=== PATIENT | female | born 2000 | race African-American/Black ===

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

== ENCOUNTER 2020-08-13 18:14 | Emergency (ER) | payer BC, SELFPAY ==
[2020-08-13 18:22] VITALS: BP 148/95; PULSE 111; RESP 16; TEMP 37.4; O2SAT 99
--- NOTE | 2020-08-13 18:28 | ED.GENADULT ---
HPI - General Adult General Chief complaint: Abdominal Pain Stated complaint: abd pain Time Seen by Provider: 08/13/20 18:29 Source: patient and RN notes reviewed Mode of arrival: ambulatory Limitations: no limitations History of Present Illness HPI narrative: 20-year-old -[place] female presents with complaints of diffuse abdomen pain, nausea, and vomiting while eating at [employer] 1 day ago. No treatment. Armando says she became nauseated while eating and had 1 emesis (without blood) episode during her meal at [employer], no further emesis. No fever or chills. No flank pain. Exacerbating factors consist of eating and drinking. Attempted to eat fries today at 15:00 in which increased her nausea. Denies dysuria, hematuria, and vaginal bleeding. No blood in stool, diarrhea, or constipation. Last BM this morning, normal. No cough or dyspnea. Denies chest pain, back pain, headache, and dizziness. Urine output within normal limits. The patient reports she have not been diagnosed with COVID-19. The patient reports she is not waiting for the results of a COVID-19 lab test. The patient reports she do not have fever, chills, weakness, or fatigue. The patient reports she do not have a new or worsening cough or shortness of breath. Denies chest pain. The patient reports she do not have any rhinorrhea, congestion, sore throat, or loss of taste. Tolerating po intake fairly. Denies recent traveling. Denies concerns for COVID-19 or exposures been home with limited outdoor exposure except for essential household needs, school, and return home. At this time, patient is not suspected of having COVID-19. Some parts of this dictation were generated by voice recognition software and may contain typographical and/or grammatical inaccuracies. Related Data Home Medications Medication Instructions Recorded Confirmed albuterol sulfate 2.5 mg INHALATION DIRECTED PRN 12/17/19 08/13/20 albuterol sulfate [ProAir HFA] 1 puff INHALATION DIRECTED PRN 12/17/19 08/13/20 amlodipine 10 mg PO DAILY 12/17/19 08/13/20 hydrochlorothiazide 25 mg PO DAILY 12/17/19 08/13/20 ferrous sulfate 325 mg PO DAILY 08/13/20 08/13/20 medroxyprogesterone [Depo-Provera] 150 mg IM [id number] 08/13/20 08/13/20 Allergies Allergy/AdvReac Type Severity Reaction Status Date / Time No Known Allergies Allergy Verified 08/13/20 18:27 Review of Systems Review of Systems: Narrative: CONSTITUTIONAL: Denies fever, chills, sweats. EYES: Denies visual changes, redness, discharge. ENT: Denies rhinorrhea, congestion, sore throat, otalgia. CARDIOVASCULAR: Denies chest pain, palpitations, edema. RESPIRATORY: Denies dyspnea, wheezing, cough. GASTROINTESTINAL: Denies diarrhea. Complains of diffused abdominal pain, vomiting nausea, and emesis, decrease appetite. GENITOURINARY: Denies dysuria, hematuria, abnormal discharge. SKIN: Denies rash or itching. MUSCULOSKELETAL: Denies acute back pain, joint pain, or myalgia. NEUROLOGIC: Denies numbness or focal weakness. PSYCHIATRIC: Denies anxiety or depression. All systems reviewed & are unremarkable except as noted in HPI and below. [facility], [facility] Past Medical History Medical History (Updated 08/14/20 @ 00:00 by Warren Stern) Asthma Hypertension Ovarian mass Surgical History Surgical History (Updated 08/14/20 @ 08:54 by SUSHANT Jalloh) History of right salpingo-oophorectomy 12/19/19 Family History Family History (Updated 08/13/20 @ 18:44 by SUSHANT Jalloh) Grandparent Breast cancer Mother Diabetes mellitus Mother Hypertension Hypothyroidism Father , R/T Asthma Asthma Social History Social History Smoking status: Never smoker Tobacco type: cigarettes Alcohol intake: never Substance use: never Gender identity (if verbalized by the patient): Female Spiritual care concerns: No Agree to blood products: Yes Commen
[2020-08-13 18:47] VITALS: BP 150/90; PULSE 112; RESP 20; O2SAT 100
== END 2020-08-13 18:47 | disposition home or self-care (01) ==
PROVIDERS: Emergency Provider Nurse Practitioner Family
DX: K52.9 Noninfective gastroenteritis and colitis, unspecified (principal); J45.909 Unspecified asthma, uncomplicated; I10 Essential (primary) hypertension
CPT/HCPCS: 81003; 81025; 99213; G0463

== ENCOUNTER 2021-04-06 19:17 | Emergency (ER) | payer BC, SELFPAY ==
[2021-04-06 19:27] VITALS: BP 153/117; PULSE 85; RESP 18; TEMP 36.3; O2SAT 99
[2021-04-06 19:35] VITALS: BP 157/94; PULSE 83; RESP 18; O2SAT 100
--- NOTE | 2021-04-06 19:44 | ED.HA ---
HPI - Headache General Chief Complaint: Headache Stated Complaint: HTN, headache and hot Time Seen by Provider: 04/06/21 19:36 Source: patient, RN notes reviewed and old records reviewed History of Present Illness HPI Narrative: 20-year-old female presents to emergency department for headache that started around 5 PM today. Patient states she was at work, and noticed the pain all throughout her head. She has had a similar headache a few months ago. She has not take anything for the pain. Light makes the headache worse. Does report some nausea, no vomiting. No chest pain or breath. Patient states her last period was in May. She states her last Depo shot was at the beginning of the year. Related Data Home Medications Medication Instructions Recorded Confirmed albuterol sulfate 2.5 mg INHALATION DIRECTED PRN 12/17/19 08/13/20 albuterol sulfate [ProAir HFA] 1 puff INHALATION DIRECTED PRN 12/17/19 08/13/20 amlodipine 10 mg PO DAILY 12/17/19 08/13/20 hydrochlorothiazide 25 mg PO DAILY 12/17/19 08/13/20 ferrous sulfate 325 mg PO DAILY 08/13/20 08/13/20 medroxyprogesterone [Depo-Provera] 150 mg IM [id number] 08/13/20 08/13/20 Allergies Allergy/AdvReac Type Severity Reaction Status Date / Time No Known Allergies Allergy Verified 08/13/20 18:27 Review of Systems Review of Systems: Narrative: CONSTITUTIONAL: Denies fever, chills, or sweats. EYES: Denies visual changes, redness, or discharge. ENT: Denies rhinorrhea, congestion, sore throat, or otalgia. CARDIOVASCULAR: Denies chest pain, palpitations, or edema. RESPIRATORY: Denies cough or dyspnea. GASTROINTESTINAL: Denies abdominal pain, vomiting, or diarrhea. Reports nausea GENITOURINARY: Denies dysuria or hematuria. SKIN: Denies rash or itching. MUSCULOSKELETAL: Denies back pain, joint pain, or myalgia. NEUROLOGIC: Denies numbness, dizziness, or weakness. Reports headache PSYCHIATRIC: Denies anxiety or depression. All systems reviewed & are unremarkable except as noted in HPI and below (ROS) [facility] Past Medical History Medical History Asthma Hypertension Ovarian mass Surgical History Surgical History History of right salpingo-oophorectomy 12/19/19 Family History Family History Grandparent Breast cancer Mother Diabetes mellitus Mother Hypertension Hypothyroidism Father , R/T Asthma Asthma Social History Social History Smoking status: Never smoker Tobacco type: cigarettes Alcohol intake: never Substance use: never Gender identity (if verbalized by the patient): Female Spiritual care concerns: No Agree to blood products: Yes Exam Narrative: Exam Narrative: GENERAL: Well-appearing, well-nourished, and in no acute distress. HEAD: Normocephalic, atraumatic. EYES: PERRLA and EOMI. ENT: Nares clear, no rhinorrhea or epistaxis. Mucous membranes moist. NECK: Supple. CHEST: Clear to auscultation. No respiratory distress. HEART: Regular rate and rhythm. No murmur heard. Normal peripheral pulses. ABDOMEN: Soft, nontender, nondistended, normal active bowel sounds. EXTREMITIES: Normal range of motion. No edema. SKIN: Warm, dry, no rash. NEURO: No focal deficits. Alert and oriented x3. PSYCH: Normal mood and affect. Course Course Emergency Course: 2044 -reevaluated patient, pain improved. Counseled patient to follow-up with her medical provider within 1 week. Can take Tylenol or Motrin/ibuprofen as needed for pain. Return to emergency department at any time if symptoms persist, worsen, or other concerns. Vital Signs Vital signs: Vital Signs Temperature 36.3 C L 04/06/21 19:27 Pulse Rate 85 04/06/21 19:27 Respiratory Rate 18 04/06/21 19:27 Blood Pressure 153/117 H 04/06/21 19:27 Pulse Oximetry 9
[2021-04-06] MEDS: diphenhydrAMINE HCl INJ 50 MG/ML VIAL 25 MG IV PUSH (19:57)
[2021-04-06] MEDS: KETOROLAC 30 MG/ML VIAL (*BKC) IV PUSH (19:58)
[2021-04-06] MEDS: PROCHLORPERAZINE EDISYLATE 10 MG/2 ML VIAL IV PUSH (19:58)
[2021-04-06 20:06] VITALS: BP 150/86; PULSE 80; RESP 18; O2SAT 100
[2021-04-06 20:48] VITALS: BP 143/100; PULSE 70; RESP 16; O2SAT 100
== END 2021-04-06 20:59 | disposition home or self-care (01) ==
PROVIDERS: Emergency Provider Emergency Medicine
DX: G44.89 Other headache syndrome (principal); J45.909 Unspecified asthma, uncomplicated; I10 Essential (primary) hypertension
CPT/HCPCS: 81025; 96374; 96375; 99284; J0780; J1200; J1885